=== PATIENT | male | born 1985 | race Caucasian/White ===

== ENCOUNTER 2016-12-06 10:07 | Emergency (ER) | payer OTHER ==
[~2016-12-06] VITALS: Ht 185.4 cm; Wt 140.7 kg
[~2016-12-06 10:07] MED LIST: INDOCIN50 MG PO; NAPROSYN500 MG PO; PERCOCET 5/31 TABLET PO; PROZAC40 MG PO; ULTRAM50 MG PO; VITAMIN D1000 UNIT PO; ZESTORETIC 20-1 EAC1 PO
[2016-12-06 10:43] VITALS: BP 120/76
[2016-12-06 11:01] VITALS: BP 110/64
[2016-12-06 11:04] LABS: HEMATOCRIT 44.1 % (38.0-50.0); MCH 31.9 PG (29.0-34.0); MCHC 36.3 G/DL (30.0-36.0); MCV 87.8 FL (86-99); MEAN PLAT.VOLUME 9.7 uM^3 (9.0-12.4); PLATELET COUNT 234 K/uL (156-360); RBC DIS.WIDTH-CV 13.1 % (11.8-14.6); RBC DIS.WIDTH-SD 41.3 % (39-53); RED BLOOD COUNT 5.02 M/uL (4.00-5.50); WHITE BLOOD COUNT 5.6 K/uL (4.1-10.2)
[2016-12-06 11:14] LABS: CHLORIDE 105 mEq/L (99-109)
[2016-12-06 11:15] LABS: POTASSIUM 3.5 mEq/L (3.7-5.4); SODIUM 137 mEq/L (136-147)
[2016-12-06 11:17] LABS: GLUCOSE 113 mg/dL (70-99)
[2016-12-06] MEDS ORDERED: ZYLOPRIM300 MG PO (11:17)
[2016-12-06 11:18] LABS: ANION GAP 11 MEQ/L (2-14)
[2016-12-06 11:19] LABS: TOTAL BILIRUBIN 0.8 mg/dL (0.0-1.0)
[2016-12-06 11:20] LABS: ALKALINE PHOSPHATASE 70 IU/L (3-129); GFR ESTIMATE (CALCULATED) > 59 mL/min/
[2016-12-06 11:22] LABS: UREA NITROGEN (BUN) 15 mg/dL (9-23)
[2016-12-06 12:01] VITALS: BP 107/66
[2016-12-06 12:31] VITALS: BP 103/68
[2016-12-06 12:55] VITALS: BP 103/68
== END 2016-12-06 13:00 | disposition home or self-care (01) ==
LOC: EME 10:07
PROVIDERS: Emergency Medicine
DX: I10 Essential (primary) hypertension (principal); F84.0 Autistic disorder
CPT/HCPCS: 71020; 80053; 85027; 93005; 99281; 99284